=== PATIENT | female | born 1980 | race Caucasian/White ===

== ENCOUNTER → 2021-12-07 13:08 | Outpatient (CLI) | payer OTHER, SELFPAY ==
[2021-12-07 15:26] LABS: COVID19 -Nasal RAPID Negative (Negative)
== END ==
PROVIDERS: Visit Provider Nurse Practitioner Family
DX: Z20.822 Contact with and (suspected) exposure to COVID-19 (principal)
CPT/HCPCS: 87635; C9803

== ENCOUNTER 2021-12-09 10:50 | Day surgery (SDC) | payer OTHER, SELFPAY ==
[2021-11-30 13:57] VITALS: BMI 48.1
[2021-12-09] VITALS (16 sets, daily range): BP systolic 109–157; BP diastolic 55–89; PULSE 67–93; RESP 10–16; TEMP 36.1–36.6; O2SAT 96–100; BMI 46.7
--- NOTE | 2021-12-09 | DI.RAD.S_ITS ---
PROCEDURE: XR CERVICAL SPINE 2V OR 3V INDICATIONS: C6-7 ACDF TECHNIQUE: 2 operative view(s) of the cervical spine were acquired. COMPARISON: None. FINDINGS: Operative imaging utilized during performance of C6-C7 ACDF. IMPRESSION: Operative imaging utilized during performance of C6-C7 ACDF. Dictated by: Marshal Alfaro M.D. on 12/09/2021 at 16:03 Approved by: Marshal Alfaro M.D. on 12/09/2021 at 16:04
--- NOTE | 2021-12-09 12:31 | PM.PREOP ---
Pre-operative Note COVID-19 COVID-19 status: Negative Result date/Date tested (Pos, Neg/Pending): 12/08/21 Criteria for continued procedure: Expected advancement of disease process, Possibility delay results in more complex future surgery or treatment, Increased loss of function, Continuing or worsening of significant or severe pain, Deterioration of the patient's condition or overall health and Delay expected to result in less-positive ultimate med/surg outcome Interval Note History & Physical reviewed/Exam performed by Physician: Yes Changes to H&P: No
--- NOTE | 2021-12-09 12:36 | SUR.OPER ---
Supine, head on gel donut. Arms padded with gel pads, tucked at sides, towel roll under shoulders. Safety belt at thigh. Legs uncrossed.
[2021-12-09] MEDS: CEFAZOLIN 2 GM/20 ML SYRINGE IV (13:05)
[2021-12-09] MEDS: BUPIVACAINE 0.25% (PF) 60 ML, EPINEPHrine 0.3 MG INJ (13:36)
--- NOTE | 2021-12-09 15:02 | PM.OP.1 ---
Operative Date/Time/Diagnoses Date of procedure: 12/09/21 Time of procedure: 13:30 Pre-op diagnosis: 1. C6-7 Spinal stenosis 2. C6-7 spondylosis with radiculopathy Post-op diagnosis: same Procedure & Clinicians Procedure: 1. C6-7 anterior cervical diskectomy and fusion 2. C6-7 anterior interbody cage placement 3. C6-7 anterior instrumentation with plate and screw placement in C5 and C6 vertebrae 4. Utilization of microsurgical technique and operating microscope Same procedure as scheduled: Yes Indications: Patient has been having chronic neck pain and worsening cervical radiculopathy. Patient failed multiple conservative management with worsening pain weakness and numbness in her upper extremity. Patient has been having difficulty performing activity of daily living. After discussing risks benefits of treatment options, patient elected proceed with surgery. Surgeon: Maria Ines [employer] Intern: Nannette Jones Click Yes if Unassisted: No Anesthesia Type: General Operative Notes Closure Type: primary Specimen(s): none sent Prosthetic devices, grafts, tissues, transplants, or devices: Globus Extend Plate, PEEK cage Estimated Blood Loss (mL): 5 Blood products transfused: none Procedure in detail: Patient was seen in the preoperative area. Risks and benefits of the surgery was discussed with the patient. Informed consent was obtained from the patient and placed in the chart. Surgical site was marked. Patient was taken to the operative room. General anesthesia was administered. Prophylactic antibiotic was given to the patient less than 30 min before the incision was made. Patient was placed into a supine position on a radiolucent table. Patient's shoulders were taped down to allow proper C-arm imaging. Anterior cervical area was prepped and draped in a sterile fashion. Time-out was performed at this time. Using lateral C-arm imaging, the level between C6 and C7 was identified and marked on patient's neck. A oblique incision from midline towards medial border of sternocleidomastoid muscle was made. The platysma muscle was incised in line with skin incision. Metzenbaum scissor was used to develop the plane between the medial border of sternocleidomastoid d and the strap muscles medially. The carotid sheath and its contents were identified and protected behind the hand-held retractor during the entire case. The plane between the carotid sheath and strap muscles was developed with Metzenbaum scissors. Dissection was made down to the level of the anterior cervical fascia. Longus colli muscle was incised on the anterior aspect of vertebral bodies bilaterally from C6-C7. Spinal needle was placed into the C6-7 disc space and confirmed with lateral C-arm imaging. Using microsurgical technique and operative microscope, anterior cervical diskectomy was performed at C6-7 level. This was done by removing the disc material, removing the anterior and posterior osteophytes posterior longitudinal ligaments along with performing bilateral foraminotomies at the C6-7 levels. Patient was found to have severe foraminal stenosis. Patient's stenosis was fully decompressed after decompression was completed. After the diskectomy was completed, an anterior interbody cage was obtained. The cage was packed with globus Trifecta bone grafting material. One cage each along with the bone grafting material was then packed into the interbody space at C6-7 along with an anterior cervical plate. The cervical plate was stabilized to the C6-7 vertebrae using screws. After confirming placement of the hardware with AP and lateral C-arm imaging, the screws were locked into the plate using the locking mechanism and torque limiting screwdriver. After the hardware was placed and confirmed with AP and lateral C-arm imaging, the wound was irrigated with sterile normal saline. The platysma muscle and the subcutaneous tissue was closed with 2-0 Vicryl. The skin was closed with 4-0 Monocryl and Steri-Strips. Patient tolerated the procedure well. Patient was transferred recovery room in stable condition. There were no complications. Complications: none Post-operative Condition: stable Plan for aftercare: Discharge to home
[2021-12-09] MEDS: fentaNYL 250 MCG/5 ML INJ IV ×4 (15:48→16:35)
[2021-12-09] MEDS: OXYCODONE IR 5 MG TABLET PO ×2 (15:48→16:33)
[2021-12-09] MEDS: ONDANSETRON 4 MG/2 ML INJ IV (16:07)
--- NOTE | 2021-12-09 17:33 | SUR.PHASEII ---
Discharge instructions reviewed with pt and she verbalized understanding.
== END 2021-12-09 17:55 | disposition home or self-care (01) ==
PROVIDERS: PCP Nurse Practitioner Family; Referring Provider Nurse Practitioner Family; Visit Provider Orthopaedic Surgery Orthopaedic Surgery of the Spine
PROC: (CPT 22551; principal; 2021-12-09 12:45)
DX: M47.22 Other spondylosis with radiculopathy, cervical region (principal); M48.02 Spinal stenosis, cervical region
CPT/HCPCS: 22551; 22853; 72040; 76000; 82962; C1713; J0171; J0690; J1170; J2250; J2405; J2704; J3010